=== PATIENT | male | born 1965 | race Caucasian/White ===

== ENCOUNTER 2019-04-05 21:43 | Emergency (ER) | payer OTHER ==
[~2019-04-05] VITALS: Ht 177.8 cm; Wt 97.5 kg
[~2019-04-05 21:43] MED LIST: LEVFLO500 PO; LEVSOD75 PO; METR500 PO; OXYACE5T PO; PROM25 PO; VIBRID PO; ZOLP12.5 PO
== END 2019-04-06 05:29 | disposition home or self-care (01) ==
LOC: ER 21:43
DX: R60.0 Localized edema (principal)
CPT/HCPCS: 96375; J0597; J1200; J2930; J7030

== ENCOUNTER → 2019-05-04 | Outpatient (CLI) | payer OTHER | END | disposition home or self-care (01) | LOC: PLD 12:54 → LAB SHORT 12:54 | DX: D48.5 Neoplasm of uncertain behavior of skin (principal) | CPT/HCPCS: 88305 ==